=== PATIENT | female | born 1990 | race Caucasian/White ===

== ENCOUNTER 2020-04-21 11:35 | Emergency (ER) | payer MEDICAID ==
--- NOTE | 2020-04-21 12:44 | ER Document Report ---
ED Medical Screen (RME) - General Chief Complaint: Dizziness Stated Complaint: DIZZINESS [facility] - Follow up as needed - [facility] Notes: 04/21/20 12:41 [id number] female 1 para 1 presents emergency room for complaints of dizziness, nausea, fatigue and sweating x1 day. Patient states today she started with dizziness and nausea. Patient states she has an issue with inner ear problems. Patient states she did have a positive test, last menstrual cycle was 03/20/20. Patient states she smokes intermittently. Is not taking a supplement. Today she states she only has dizziness. Denies any fevers or chills, vomiting, diarrhea. No chest pain or shortness of breath. Decreased eating but drinking without issues I have greeted and performed a rapid initial assessment of this patient. A comprehensive ED assessment and evaluation of the patient, analysis of test results and completion of the medical decision making process will be conducted by additional ED providers. PHYSICAL EXAMINATION: GENERAL: Well-appearing, well-nourished and in no acute distress. HEAD: Atraumatic, normocephalic. EYES: Pupils equal round extraocular movements intact, conjunctiva are normal. NECK: Normal range of motion CV: s1, s2 regular LUNGS: No respiratory distress Musculoskeletal: Normal range of motion NEUROLOGICAL: Normal speech, normal gait. SKIN: Warm, Dry, normal turgor, no rashes or lesions noted. - Related Data Allergies/Adverse Reactions: lactose Allergy (Verified 04/21/20 12:30) No Known Drug Allergies Allergy (Verified 11/05/13 03:05) Physical Exam - Vital signs Vitals: Temp Pulse Resp BP Pulse Ox 98.6 F 84 16 111/78 100 04/21/20 11:41 04/21/20 11:41 04/21/20 11:41 04/21/20 11:41 04/21/20 11:41 Course - Vital Signs Vital signs: Temp Pulse Resp BP Pulse Ox 98.6 F 84 16 111/78 100 04/21/20 12:37 04/21/20 11:41 04/21/20 11:41 04/21/20 11:41 04/21/20 11:41 Doctor's Discharge - Discharge Referrals: FRANK MCKEON [facility] [Primary Care Provider] - Follow up as needed
[2020-04-21 13:56] LABS: ABSOLUTE EOSINOPHILS # (AUTO) 0.1 10^3/uL (0.0-0.6); ABSOLUTE LYMPHOCYTES (AUTO) 1.9 10^3/uL (0.5-4.7); ABSOLUTE MONOCYTES (AUTO) 0.7 10^3/uL (0.1-1.4); ABSOLUTE NEUT (AUTO) 7.2 10^3/uL (1.7-8.2); BASOPHILS % (AUTO) 0.4 % (0-2); EOSINOPHILS % (AUTO) 0.6 % (0-6); HEMATOCRIT 40.5 % (36.0-47.0); LYMPHOCYTES % (AUTO) 19.2 % (13-45); MEAN CORPUSCULAR HEMOGLOBIN 31.6 pg (27.0-33.4); MEAN CORPUSCULAR HGB CONC 34.6 g/dL (32.0-36.0); MEAN CORPUSCULAR VOLUME 91 fl (80-97); MONOCYTES % (AUTO) 7.3 % (3-13); PLATELET COUNT 142 10^3/uL (150-450); RED BLOOD COUNT 4.43 10^6/uL (3.72-5.28); RED CELL DISTRIBUTION WIDTH 13.7 % (11.5-14.0); SEGMENTED NEUTROPHILS % (AUTO) 72.5 % (42-78); TOTAL CELLS COUNTED % (AUTO) 100 %
[2020-04-21 14:10] LABS: APPEARANCE,URINE CLEAR; BILIRUBIN,URINE NEGATIVE (NEGATIVE); COLOR,URINE YELLOW; GLUCOSE, URINE NEGATIVE (NEGATIVE); KETONES,URINE NEGATIVE (NEGATIVE); LEUKOCYTE ESTERASE,URINE NEGATIVE (NEGATIVE); NITRITE,URINE NEGATIVE (NEGATIVE); PROTEIN,URINE NEGATIVE (NEGATIVE); URINE SPECIFIC GRAVITY 1.009; UROBILINOGEN,URINE NEGATIVE mg/dL (<2.0)
[2020-04-21 14:23] LABS: ALBUMIN 4.5 g/dL (3.5-5.0); ALKALINE PHOSPHATASE 48 U/L (38-126); ANION GAP 8 (5-19); ASPARTATE AMINO TRANSFERASE 18 U/L (14-36); BILIRUBIN,TOTAL 0.4 mg/dL (0.2-1.3); BLOOD UREA NITROGEN 8 mg/dL (7-20); CALCIUM 9.5 mg/dL (8.4-10.2); CARBON DIOXIDE 24 mmol/L (22-30); CHLORIDE 105 mmol/L (98-107); GLUCOSE 97 mg/dL (75-110); POTASSIUM 4.3 mmol/L (3.6-5.0); TOTAL PROTEIN 7.4 g/dL (6.3-8.2)
[2020-04-21 17:15] VITALS: BP 115/59
--- NOTE | 2020-04-21 17:33 | ER Document Report ---
ED General - General Chief Complaint: Dizziness Stated Complaint: DIZZINESS Time Seen by Provider: 04/21/20 17:04 Primary Care Provider: ADELA COOL MD [ACTIVE STAFF] - Follow up as needed NICKIE QUINTANILLA MD [ACTIVE STAFF] - Follow up as needed JOHANNA NEGRETE MD [ACTIVE STAFF] - [facility] - Follow up as needed Mode of Arrival: Ambulatory Information source: Patient TRAVEL OUTSIDE OF THE [place] IN LAST 30 DAYS: No - HPI Onset: Other - over the last several days Onset/Duration: Gradual Quality of pain: Cramping - pelvic pains Severity: Moderate Pain Level: 1 Associated symptoms: Other - Dizziness, nausea Exacerbated by: Movement Relieved by: Remaining still Similar symptoms previously: No Recently seen / treated by doctor: No Notes: 29 year old female with no significant PMH here in the ER for dizziness and nausea for the last several days. The patient says her last period was about a month ago. The patient thinks she is since she took a home test which was postive but she has not had any care. The patient never had dizziness like this with her prior . The patient denies recent fevers, chills, sweats, vomiting, diarrhea, chest pain, trouble breathing. - Related Data Allergies/Adverse Reactions: lactose Allergy (Verified 04/21/20 12:30) No Known Drug Allergies Allergy (Verified 11/05/13 03:05) Past Medical History - General Information source: Patient - Social History Smoking Status: Current Every Day Smoker Frequency of alcohol use: None Drug Abuse: None Family History: Reviewed & Not Pertinent Patient has suicidal ideation: No Patient has homicidal ideation: No Review of Systems - Review of Systems Constitutional: No symptoms reported EENT: No symptoms reported Cardiovascular: No symptoms reported Respiratory: No symptoms reported Gastrointestinal: No symptoms reported Genitourinary: No symptoms reported Female Genitourinary: Other - has not had a period for over a month Musculoskeletal: No symptoms reported Skin: No symptoms reported Hematologic/Lymphatic: No symptoms reported Neurological/Psychological: Other - Dizziness -: Yes All other systems reviewed and negative Physical Exam - Vital signs Vitals: Temp Pulse Resp BP Pulse Ox 98.6 F 84 16 111/78 100 04/21/20 11:41 04/21/20 11:41 04/21/20 11:41 04/21/20 11:41 04/21/20 11:41 - Notes Notes: GENERAL: Well-appearing, well-nourished and in no acute distress. HEAD: Atraumatic, normocephalic. EYES: Pupils equal round and reactive to light, extraocular movements intact, sclera anicteric, conjunctiva are normal. ENT: External ears normal, nares patent, oropharynx clear without exudates. Moist mucous membranes. NECK: Normal range of motion, supple without lymphadenopathy or JVD. LUNGS: Breath sounds clear to auscultation bilaterally and equal. No wheezes rales or rhonchi. HEART: Regular rate and rhythm without murmurs, rubs or gallops. ABDOMEN: Soft, nontender, normoactive bowel sounds. No guarding, no rebound. No masses appreciated. EXTREMITIES: Normal range of motion, no pitting or edema. No clubbing or cyanosis. NEUROLOGICAL: Cranial nerves II through XII grossly intact. Normal speech, normal gait. PSYCH: Normal mood, normal affect. SKIN: Warm, Dry, normal turgor, no rashes or lesions noted. Course - Re-evaluation Re-evalutation: 04/21/20 17:47 The patient is and she has been experiencing dizzy spells. Patient told she is likely shunting fluid to her fetus and that she needs to increase her intake of oral fluids. Patient's labs and EKG are unremarkable. Patient's Beta HCG is in the 6000s. Patient offered an OB Ultrasound to evaluate the status of her but she preferred to follow up as an outpatient with an [employer] Doctor which I think is very reasonable. No need for emergent ultrasound at this time since she is not having any real pelvic pains (just minor cramps). Patient told to start taking a vitamin and to follow up with an [employer] Doctor DANA. - Vital Signs Vital signs: Temp Pulse Resp BP Pulse Ox 98.6 F 71 16 115/59 L 100 04/21/20 12:37 04/21/20 17:13 04/21/20 11:41 04/21/20 17:13 04/21/20 11:41 - Laboratory Result Diagrams: 04/21/20 13:37 04/21/20 13:37 Laboratory results interpreted by me: 04/21/20 04/21/20 04/21/20 13:37 13:37 13:37 Plt Count 142 L Beta HCG, Quant 6264.50 H Urine Blood SMALL H - EKG Interpretation by Me EKG shows normal: Sinus rhythm, [place], Intervals, QRS Complexes, ST-T Waves Rate: Normal Rhythm: NSR Discharge - Discharge Clinical Impression: Dizziness Qualifiers: Weeks of gestation: unspecified Qualified Code(s): Z34.90 - Encounter for supervision of normal , unspecified, unspecified trimester Condition: Stable Disposition: HOME, SELF-CARE Instructions: Dizziness ([facility]), ([facility]) Additional Instructions: You are . Drink plenty of fluids in the days to come. Take a vitamin. Follow up with and [employer] Doctor as soon as possible. [facility] - Follow up as needed JOHANNA NEGRETE MD [ACTIVE STAFF] - Follow up as needed NICKIE QUINTANILLA MD [ACTIVE STAFF] - Follow up as needed ADELA COOL MD [ACTIVE STAFF] - Follow up as needed
--- NOTE | 2020-04-21 19:58 | EKG REPORT ---
SEVERITY:- NORMAL ECG - SINUS RHYTHM : Confirmed by: Joseph Asher MD 21-Apr-2020 19:57:58
== END 2020-04-21 17:38 | disposition home or self-care (01) ==
LOC: ER 11:35
DX: O26.891 Other specified pregnancy related conditions, first trimester (principal); R42 Dizziness and giddiness; R11.0 Nausea; O99.331 Smoking (tobacco) complicating pregnancy, first trimester; F17.200 Nicotine dependence, unspecified, uncomplicated; Z3A.01 Less than 8 weeks gestation of pregnancy; Z91.018 Allergy to other foods
CPT/HCPCS: 36415; 80053; 81001; 84702; 85025; 93005; 93010; 99284